=== PATIENT | male | born 1940 | race Caucasian/White ===

== ENCOUNTER 2022-04-05 18:51 | Emergency (ER) | payer MEDICARE, BC ==
[2022-04-05 19:20] VITALS: BP 155/71; PULSE 72
[2022-04-05] MEDS ORDERED: Sodium Chloride 0.9% 10 ML Syringe FLUSH PRN (19:22)
== END 2022-04-05 21:22 | disposition home or self-care (01) ==
LOC: JP.ED 18:51
DX: T85.9XXA Unspecified complication of internal prosthetic device, implant and graft, initial encounter (principal); L03.116 Cellulitis of left lower limb; E11.9 Type 2 diabetes mellitus without complications; I10 Essential (primary) hypertension; Z20.822 Contact with and (suspected) exposure to COVID-19; Z79.899 Other long term (current) drug therapy
CPT/HCPCS: 36415; 83605; 85025; 86140; 87040; 99283; U0002